=== PATIENT | female | born 1995 | race Two or more races ===

== ENCOUNTER 2019-01-18 16:01 | Inpatient (IN) | payer OTHER ==
[~2019-01-18] VITALS: Ht 160 cm; Wt 57.6 kg
[2019-01-18] MEDS ORDERED: PRENATAL TABLE1 EAC1 PO (16:18)
== END 2019-01-23 14:41 | disposition home or self-care (01) | DRG 788 ==
LOC: OBS/DEL 16:01 → OB/GYN 16:55 → LDR 16:55 → OBS/DEL 16:55 → OB/GYN 01-20 13:11
PROVIDERS: ADMIT Obstetrics & Gynecology
PROC: 4A1HXCZ Monitoring of Products of Conception, Cardiac Rate, External Approach (ICD-10-PCS; 2019-01-18)
PROC: BY4CZZZ Ultrasonography of Second Trimester, Single Fetus (ICD-10-PCS; 2019-01-20)
PROC: 10D00Z1 Extraction of Products of Conception, Low, Open Approach (ICD-10-PCS; principal; 2019-01-20 10:00)
DX: O82 Encounter for cesarean delivery without indication (principal); O64.4XX0 Obstructed labor due to shoulder presentation, not applicable or unspecified; O26.842 Uterine size-date discrepancy, second trimester; O42.012 Preterm premature rupture of membranes, onset of labor within 24 hours of rupture, second trimester; Z3A.27 27 weeks gestation of pregnancy; Z37.0 Single live birth

== ENCOUNTER → 2022-07-21 | Emergency (ER) | payer OTHER ==
[~2022-07-21] VITALS: Ht 160 cm; Wt 66.2 kg
[~2022-07-21] MED LIST: PRENATAL TABLE1 EAC1 PO
== END | disposition home or self-care (01) ==
LOC: ER 09:19
DX: N39.0 Urinary tract infection, site not specified (principal); R10.84 Generalized abdominal pain; I10 Essential (primary) hypertension